=== PATIENT | female | born 1945 | race Caucasian/White ===

== ENCOUNTER 2018-02-18 17:45 | Observation (INO) | payer BC ==
[~2018-02-18] VITALS: Ht 157.5 cm; Wt 88.1 kg
[~2018-02-18 17:45] MED LIST: Z.0.BYSTOLIC10 MG PO
--- OUTSIDE RECORDS SUMMARY | 2018-02-18 17:48 | XMS REPORT | Clinical Summary ---
Author Author [facility] Organization [facility] Address Unknown Phone Unavailable Care Team Providers Care Field Service Specialist Name Role Phone Asked, No Pcp PCP Unavailable Allergies Not on File Current Medications Not on file Active Problems Not on file Social History Tobacco Use Types Packs/Day Years Used Date Never Assessed Sex Assigned at Date Recorded Not on file Last Filed Vital Signs Not on file Plan of Treatment Health Maintenance Due Date Last Done Comments BREAST CANCER SCREENING 1997 COLON CANCER SCREENING 1997 SHINGRIX VACCINE (#1) 1997 ZOSTER VACCINE 2007 PNEUMOCOCCAL 2012 POLYSACCHARIDE VACCINE AGE 65 AND OVER PNEUMOCOCCAL-13 2012 INFLUENZA VACCINE 11/23/2017 Results Not on fileafter 02/17/2017 Insurance Payer Benefit Subscriber ID Type Phone Address Plan / Group BCBS BCBS xxxxxxxxx PPO CHOICE PPO/[employer] PPO
[2018-02-18 21:55] LABS: BASOPHILS # (AUTO) 0.1 (0.0-0.1); BASOPHILS % 0.6 % (0.0-1.0); EOSINOPHILS # (AUTO) 0.1 (0.0-0.4); EOSINOPHILS % 1.5 % (0.0-6.0); HEMATOCRIT 51.7 % (34.2-44.1); HEMOGLOBIN 16.4 g/dL (12.0-16.0); LYMPHOCYTES # (AUTO) 1.6 (1.0-3.2); LYMPHOCYTES % 20.1 % (18.0-39.1); MEAN CORPUSCULAR HEMOGLOBIN 29.5 pg (28-32); MEAN CORPUSCULAR HGB CONC 31.7 g/dL (31-35); MONOCYTES # (AUTO) 0.9 (0.2-0.8); MONOCYTES % 11.3 % (4.4-11.3); NEUTROPHILS # (AUTO) 5.1 (2.1-6.9); PLATELET COUNT 212 x10e3/uL (140-360); RED BLOOD COUNT 5.56 x10e6/uL (3.6-5.1); RED CELL DISTRIBUTION WIDTH 14.4 % (11.7-14.4)
[2018-02-18] MEDS ORDERED: VANCOMYCIN 1GM/NS 250 ML 250 ML IV ONE (22:00)
[2018-02-18] MEDS ORDERED: DIPHENHYDRAMINE HCL INJ 50 MG/ML VIAL IV ONE (22:00)
[2018-02-18] MEDS ORDERED: METHYLPREDNISOLONE SOD SUCC 125 MG/2ML VIAL IV ONE (22:00)
[2018-02-18 22:10] LABS: ANION GAP 13.9 mmol/L (8-16); BLOOD UREA NITROGEN 17 mg/dL (7-26); BUN/CREATININE RATIO 22 (6-25); CALCIUM 9.6 mg/dL (8.4-10.2); CARBON DIOXIDE 28 mmol/L (22-29); CHLORIDE 103 mmol/L (98-107); CREATININE, SERUM 0.79 mg/dL (0.57-1.11); EST GLOMERULAR FILTRATION RATE > 60 ML/MIN (60-); GLUCOSE 86 mg/dL (74-118); POTASSIUM 3.9 mmol/L (3.5-5.1); SODIUM 141 mmol/L (136-145)
--- NOTE | 2018-02-18 22:13 | Diagnostic Imaging Report ---
HUMERUS LEFT 2+VIEWS Comparison: None Clinical history: Cellulitis Findings: No fracture or dislocation. Artifactual lucency related to a skin fold projects over the distal humerus on frontal view. No osseous destruction. Impression: No acute bony abnormality Signed by: Dr Yolanda Brewer MD on 02/18/2018 10:10 PM
[2018-02-18] MEDS ORDERED: DIPHENHYDRAMINE HCL INJ 50 MG/ML VIAL IV PRN (22:30)
[2018-02-18] MEDS ORDERED: ACETAMINOPHEN 325 MG TAB PO PRN (22:30)
[2018-02-18] MEDS ORDERED: ONDANSETRON HCL INJ 2 MG/ML VIAL IV PRN (22:30)
--- OUTSIDE RECORDS SUMMARY | 2018-02-18 22:39 | XMS REPORT ---
Author Author [facility] Address Unknown Phone Unavailable Care Team Providers Care Optimization Engineer Name Role Phone Ozzy CARRERA Unavailable Unavailable Problems This patient has no known problems. Allergies, Adverse Reactions, Alerts This patient has no known allergies or adverse reactions. Medications This patient has no known medications. Results Test Description Test Time Test Comments Text Results Atomic Results Result Comments HUMERUS LEFT 2+VIEWS 2018-02-18 22:07:00 [place] [address] Patient Name: CHARLIE PARKER MR #: [id number] : 1945 Age/Sex: 72/F Req #: [id number] Adm Physician: Ordered by: MI TY NP Report #: [id number] Location: ER Room/Bed: Procedure: [id number] DX/HUMERUS LEFT 2+VIEWS Exam Date: 02/18/18 Exam Time: 2119 REPORT STATUS: Signed HUMERUS LEFT 2+VIEWS Comparison: None Clinical history: Cellulitis Findings: No fracture or dislocation. Artifactual lucency related to a skin fold projects over the distal humerus on frontal view. No osseous destruction. Impression: No acute bony abnormality Signed by: Dr Brody Brewer MD on 02/18/2018 10:10 PM Dictated By: BRODY BREWER MD 09 Transcribed By: MARIAN on 02/18/182209 COPY TO: MI TY NP
--- OUTSIDE RECORDS SUMMARY | 2018-02-18 22:39 | XMS REPORT | Clinical Summary ---
Author Author [facility] Address Unknown Phone Unavailable Care Team Providers Care Chef De Partie Name Role Phone Asked, No Pcp PCP [...]
[2018-02-18] MEDS: SODIUM CHLORIDE 0.9% 1000ML 1,000 ML IV SCH (23:00)
[2018-02-19 00:11] VITALS: BP 136/71
[2018-02-19 00:36] LABS: BILIRUBIN,URINE NEGATIVE (NEGATIVE); CLARITY,URINE CLEAR (CLEAR); COLOR,URINE YELLOW (YELLOW); EPITHELIAL CELLS,URINE FEW /LPF; KETONES,URINE NEGATIVE (NEGATIVE); LEUKOCYTE ESTERASE ,URINE NEGATIVE (NEGATIVE); NITRITE,URINE NEGATIVE (NEGATIVE); PROTEIN,URINE DIPSTICK NEGATIVE (NEGATIVE); RBC,URINE 0-5 /HPF (0-5); URINE UROBILINOGEN 0.2 mg/dL (0.2 - 1); WBC,URINE (MAN) 0-5 /HPF (0-5)
[2018-02-19 00:37] VITALS: BP 136/71
[2018-02-19 00:37] LABS: MUCUS,URINE FEW (RARE)
[2018-02-19] MEDS ORDERED: LEVOTHYROXINE112 MCG PO (00:51)
[2018-02-19] MEDS: METHYLPREDNISOLONE SOD SUCC 40 MG/ML VIAL IV SCH ×2 (03:47→09:48)
[2018-02-19 04:00] VITALS: BP 112/66
[2018-02-19 06:38] LABS: BASOPHILS % 0.1 % (0.0-1.0); HEMATOCRIT 48.5 % (34.2-44.1); HEMOGLOBIN 15.3 g/dL (12.0-16.0); LYMPHOCYTES # (AUTO) 0.4 (1.0-3.2); LYMPHOCYTES % 5.7 % (18.0-39.1); MEAN CORPUSCULAR HEMOGLOBIN 29.5 pg (28-32); MEAN CORPUSCULAR HGB CONC 31.5 g/dL (31-35); MEAN CORPUSCULAR VOLUME 93.4 fL (81-99); MONOCYTES # (AUTO) 0.1 (0.2-0.8); MONOCYTES % 0.9 % (4.4-11.3); NEUTROPHILS # (AUTO) 6.4 (2.1-6.9); NEUTROPHILS % 92.7 % (38.7-80.0); PLATELET COUNT 202 x10e3/uL (140-360); RED BLOOD COUNT 5.19 x10e6/uL (3.6-5.1); RED CELL DISTRIBUTION WIDTH 14.4 % (11.7-14.4)
[2018-02-19 07:08] LABS: ALANINE AMINOTRANSFERASE 8 IU/L (0-55); ALBUMIN 3.2 g/dL (3.5-5.0); ALBUMIN/GLOBULIN RATIO 1.1 (0.8-2.0); ALKALINE PHOSPHATASE 93 IU/L (40-150); ANION GAP 12.4 mmol/L (8-16); BLOOD UREA NITROGEN 21 mg/dL (7-26); BUN/CREATININE RATIO 30 (6-25); CALCIUM 9.4 mg/dL (8.4-10.2); CARBON DIOXIDE 26 mmol/L (22-29); CHLORIDE 109 mmol/L (98-107); EST GLOMERULAR FILTRATION RATE > 60 ML/MIN (60-); GLUCOSE 143 mg/dL (74-118); POTASSIUM 4.4 mmol/L (3.5-5.1); SODIUM 143 mmol/L (136-145)
[2018-02-19 07:56] VITALS: BP 117/74
[2018-02-19 09:14] LABS: LYMPHOCYTES % (MANUAL) 5 % (19-48); MONOCYTES % (MANUAL) 2 % (3.4-9.0); NEUTROPHILS % (MANUAL) 93 % (40-74)
[2018-02-19 09:15] LABS: PLATELET ESTIMATE ADEQUATE; PLATELET MORPHOLOGY COMMENT NORMAL; RBC MORPHOLOGY COMMENT NORMAL
[2018-02-19] MEDS: SODIUM CHLORIDE 0.9% 1000ML 1,000 ML IV SCH (09:30)
[2018-02-19] MEDS ORDERED: VANCOMYCIN 1GM/NS 250 ML 250 ML IV SCH (10:00)
--- NOTE | 2018-02-19 14:07 | History and Physical ---
CHIEF COMPLAINT: Allergic reaction to vaccination to the left upper shoulder with severe reaction redness, painful and fever. SUMMARY: A 72-year-old female went to see her family doctor and subsequently had influenza vaccine on the right shoulder and then the pneumonia vaccine on the left shoulder. Patient came to the hospital with severe reaction, significant inflammation along the left deltoid area with tender to touch and redness. The patient subsequently received IV steroids, IV fluids and Benadryl. Patient did not improve significantly yet; therefore, she was placed on observation. The patient is stable at this time. PAST MEDICAL HISTORY: Hypertension, osteoarthritis, and Grave's disease. PASTS SURGICAL HISTORY: Urinary bladder suspension, rectal surgery, and thyroidectomy. SOCIAL HISTORY: Patient does not smoke or use alcohol. No recreational drugs. ALLERGIES: TO Z-ANDREW, PENICILLIN, AND KEFLEX. HOME MEDICATIONS: List reviewed. REVIEW OF SYSTEMS: Left shoulder swelling and pain on admission. PHYSICAL EXAMINATION VITAL SIGNS: Temperature is 97, blood pressure 117/74, pulse rate 76, and respirations 18. GENERAL: The patient is not in acute distress. She is awake. HEENT: Normocephalic, atraumatic and anicteric. NECK: Supple grossly. PULMONARY: Diminished breath sounds. CARDIOVASCULAR: Regular rate and rhythm. ABDOMEN: Soft and unremarkable. EXTREMITIES: Left shoulder pneumonia vaccine reaction. NEUROLOGIC: No focal deficit. LABORATORY: Otherwise unremarkable. IMPRESSION 1. Severe allergic reaction. 2. Pneumonia vaccine to the left deltoid shoulder. PLAN: Continue with IV steroids, Benadryl. Supportive measures. We will monitor patient closely. If the patient stable, the patient should be able to go home soon. Job#: [id number] ROLY
--- NOTE | 2018-02-20 00:12 | Discharge Summary ---
FINAL DIAGNOSIS: Severe allergic reaction to pneumonia vaccine to the left deltoid shoulder area. SUMMARY: This is a 72-year-old female with reaction to the left deltoid with inflammation, large inflamed area, could be considered allergic reaction versus infection. Patient was placed in observation. She has received IV steroids and antibiotics. Today, the left shoulder completely resolved. It is most likely an allergic reaction from the pneumonia vaccine. The patient is stable and discharged home. Resume home medication. No further medical treatment needed. Job#: [id number] ROMAINE
[2018-03-15] MEDS ORDERED: LEVOTHYROXINE137 MCG PO (11:42)
[2018-03-15] MEDS ORDERED: BYSTOLIC5 MG PO (11:43)
[2018-03-15] MEDS ORDERED: PROAIR HFA INH8.5 GM INH (11:44)
[2018-03-15] MEDS ORDERED: NAPROXEN500 MG PO (11:45)
[2018-03-15] MEDS ORDERED: TYLENOL WITH C1 EACH PO (11:46)
[2018-04-05] MEDS ORDERED: VIT D PO (11:58)
[2018-04-05] MEDS ORDERED: ULTRAM 50MG50 MG PO (11:58)
[2018-04-05] MEDS ORDERED: CALCIUM PO (11:58)
[2018-04-05] MEDS ORDERED: TYLENOL WITH C1 EACH PO (11:58)
--- NOTE | 2018-04-08 18:42 | Discharge Summary ---
NO DICTATION (119.46) Job#: [id number] RTThai
== END 2018-02-19 12:16 | disposition home or self-care (01) ==
LOC: ER 17:45 → ERHOLD 22:37 → INTOOBSV 22:37 → MED/SURG3 02-19 00:11
PROVIDERS: ADMIT Internal Medicine; ATTEND Internal Medicine
DX: L03.114 Cellulitis of left upper limb (principal); T50.A95A Adverse effect of other bacterial vaccines, initial encounter; Z88.1 Allergy status to other antibiotic agents; Z88.0 Allergy status to penicillin; Z88.8 Allergy status to other drugs, medicaments and biological substances
CPT/HCPCS: 36415 ×2; 73060; 80048; 80053; 81001; 83605; 85025 ×2; 87040; 99284; G0378 ×2; J1200; J2920; J2930; J3370 ×2; J7030 ×2

== ENCOUNTER → 2018-03-21 | Day surgery (SDC) | payer BC ==
[~2018-03-21] MED LIST changes: +BYSTOLIC5 MG PO; +CALCIUM PO; +FENTANYL CITRATE/PF 100MCG/2 ML INJ ONE; +LEVOTHYROXINE112 MCG PO; +LEVOTHYROXINE137 MCG PO; +MIDAZOLAM HCL 2 MG/2 ML VIAL ONE; +NAPROXEN500 MG PO; +OR PHACO EYE KIT ONE; +PREOP PHACO EYE KIT ONE; +PROAIR HFA INH8.5 GM INH; +TYLENOL WITH C1 EACH PO; +ULTRAM 50MG50 MG PO; +VIT D PO
--- OUTSIDE RECORDS SUMMARY | 2018-03-21 11:45 | XMS REPORT | Clinical Summary ---
Author Author [facility] Address Unknown Phone Unavailable Care Team Providers Care Architectural Project Captain Name Role Phone Asked, No Pcp PCP Unavailable Allergies Not on File Medications Not on file Active Problems Not on file Social History Date Tobacco Use Types Packs/Day Years Used Never Assessed Sex Assigned at Date Recorded Not on file Industry Job Start Date Occupation Not on file Not on file Not on file Travel End Travel History Travel Start No recent travel history available. Last Filed Vital Signs Not on file Plan of Treatment Health Maintenance Due Date Last Done Comments BREAST CANCER SCREENING 1997 COLON CANCER SCREENING 1997 SHINGRIX VACCINE (1 of 2) 1997 ZOSTER VACCINE 2007 PNEUMOCOCCAL 2012 POLYSACCHARIDE VACCINE AGE 65 AND OVER PNEUMOCOCCAL-13 2012 INFLUENZA VACCINE 11/23/2017 Results Not on fileafter 03/20/2017 Insurance Payer Benefit Subscriber ID Type Phone Address Plan / Group BCBS BCBS xxxxxxxxx PPO CHOICE PPO/[employer] PPO Advance Directives Patient has advance care planning documents on file. For more information, marques barba contact: Roger Santillan [address] [place] [address]
[2018-03-21 14:58] VITALS: BP 104/68
== END | disposition home or self-care (01) ==
LOC: OR 11:42
PROVIDERS: ATTEND Ophthalmology
DX: H25.11 Age-related nuclear cataract, right eye (principal); E03.9 Hypothyroidism, unspecified; M06.4 Inflammatory polyarthropathy; M19.90 Unspecified osteoarthritis, unspecified site; R53.1 Weakness; J41.0 Simple chronic bronchitis; I10 Essential (primary) hypertension; E78.5 Hyperlipidemia, unspecified; F17.210 Nicotine dependence, cigarettes, uncomplicated; Z88.1 Allergy status to other antibiotic agents; Z88.0 Allergy status to penicillin; Z68.36 Body mass index [BMI] 36.0-36.9, adult
CPT/HCPCS: 66984; J2250; V2632

== ENCOUNTER → 2018-04-11 | Day surgery (SDC) | payer BC ==
[2018-04-05 12:01] LABS: BASOPHILS # (AUTO) 0.1 (0.0-0.1); BASOPHILS % 0.8 % (0.0-1.0); EOSINOPHILS # (AUTO) 0.2 (0.0-0.4); EOSINOPHILS % 1.5 % (0.0-6.0); HEMATOCRIT 51.8 % (34.2-44.1); HEMOGLOBIN 16.2 g/dL (12.0-16.0); LYMPHOCYTES # (AUTO) 2.1 (1.0-3.2); MEAN CORPUSCULAR HEMOGLOBIN 29.4 pg (28-32); MEAN CORPUSCULAR HGB CONC 31.3 g/dL (31-35); MONOCYTES # (AUTO) 1.1 (0.2-0.8); MONOCYTES % 10.8 % (4.4-11.3); NEUTROPHILS # (AUTO) 6.5 (2.1-6.9); NEUTROPHILS % 65.4 % (38.7-80.0); PLATELET COUNT 272 x10e3/uL (140-360); RED BLOOD COUNT 5.51 x10e6/uL (3.6-5.1); RED CELL DISTRIBUTION WIDTH 14.2 % (11.7-14.4)
[~2018-04-11] MED LIST changes: -OR PHACO EYE KIT ONE; -PREOP PHACO EYE KIT ONE
--- OUTSIDE RECORDS SUMMARY | 2018-04-11 11:24 | XMS REPORT | Clinical Summary ---
Author Author [facility] Organization [facility] Address Unknown Phone Unavailable Care Team Providers Care Software Installation Engineer Name Role Phone Asked, No Pcp PCP [...] CANCER SCREENING 1997 COLON CANCER SCREENING 1997 SHINGLES VACCINES (1 of 1997 2) PNEUMOCOCCAL 2012 POLYSACCHARIDE VACCINE AGE 65 AND OVER PNEUMOCOCCAL-13 2012 INFLUENZA VACCINE 11/23/2017 Results Not on fileafter 04/10/2017 Insurance Payer Benefit Subscriber ID Type Phone Address Plan / Group BCBS BCBS xxxxxxxxx PPO CHOICE PPO/[employer]QU[employer]ENDR[employer] PPO Advance Directives Patient has advance care planning documents on file. For more information, marques barba contact: Roger Santillan [address] [place] [phone]
[2018-04-11 14:40] VITALS: BP 123/78
== END | disposition home or self-care (01) ==
LOC: OR 11:22
PROVIDERS: ATTEND Ophthalmology
DX: H25.12 Age-related nuclear cataract, left eye (principal); I10 Essential (primary) hypertension; E78.5 Hyperlipidemia, unspecified; F17.210 Nicotine dependence, cigarettes, uncomplicated; Z88.0 Allergy status to penicillin; Z88.8 Allergy status to other drugs, medicaments and biological substances; Z01.812 Encounter for preprocedural laboratory examination
CPT/HCPCS: 36415; 66984; 85025; J2250; V2632